=== PATIENT | female | born 1995 | race Caucasian/White ===

== ENCOUNTER 2018-03-14 17:21 | Emergency (ER) | payer OTHER ==
[2018-03-14 17:32] VITALS: BP 121/80
[2018-03-14] MEDS: DIPH,PERTUSS(ACELL),TET VAC/PF 0.5 ML DISP.SYRIN IM ONE (17:45)
--- NOTE | 2018-03-14 17:46 | ED Physician Documentation ---
General Adult - HISTORIAN Historian: patient - HPI Stated Complaint: Cat bites Chief Complaint: General Adult Additional Information: Bitten by her cat just prior to arrival in ER. Says her partner ran over the cat , she picked up the animal and was bitten. Says cat's rabies immunization UTD. No recent antibiotics. Hands washed with soap and water at home and with chlorhexadine in ER. - ROS CONST: no problems - PAST HX Past History: none Allergies/Adverse Reactions: Allergies Allergy/AdvReac Type Severity Reaction Status Date / Time No Known Allergies Allergy Verified 03/14/18 17:32 Home Medications: Ambulatory Orders Medication Instructions Recorded Amoxicillin/Potassium Clav 1 each PO Q8H #30 tablet 03/14/18 [Augmentin 500-125 Tablet] Norethindrone AC-Eth Estradiol 1 tab PO DAILY 03/14/18 [Microgestin 21 1-20 Tablet] - SOCIAL HX Smoking History: non-smoker - FAMILY HX Family History: No - VITAL SIGNS Vital Signs: Vital Signs Temp Pulse Resp BP Pulse Ox 98.3 F 86 17 121/80 100 03/14/18 17:27 03/14/18 17:27 03/14/18 17:27 03/14/18 17:27 03/14/18 17:27 - REVIEWED ASSESSMENTS Nursing Assessment Reviewed: Yes Vitals Reviewed: Yes ED Results Lab/Radiology - Orders Orders: ED Orders Category Date Time Status Diph,Pertuss(Acell),Tet Vac/Pf [Adacel] Med 03/14/18 17:42 Discontinued 0.5 ml IM .STK-MED ONE General Adult Physical Exam - PHYSICAL EXAM GENERAL APPEARANCE: mild distress (upset at cat's ) EENT: eye inspection normal, ENT inspection normal NECK: normal inspection, supple RESPIRATORY: no resp distress BACK: other (supple movements w/o pain) SKIN: warm/dry, normal color, other (superficial abrasions and one puncture luis dorsum right hand, mild swelling. Superficial abrasion dorsum left hand.) EXTREMITIES: normal range of motion (gait and stance) NEURO: CN's nml as tested, motor nml, sensation nml, cognition normal Discharge Clincal Impression: Cat bite Prescriptions: Amoxicillin/Potassium Clav [Augmentin 500-125 Tablet] 1 each PO Q8H #30 tablet Referrals: Blayne Alarcon MD [STAFF PHYSICIAN] - 2 Days Additional Instructions: Take all the antibiotics as prescribed until they are completely gone. Return to the ER or see your provider immediately if your hands become infected. Your prescription is at [facility]. Condition: Good Disposition: 01 HOME, SELF-CARE Decision to Admit: NO Decision Time: 17:42
== END 2018-03-14 17:49 | disposition home or self-care (01) ==
LOC: ED 17:21
DX: S60.511A Abrasion of right hand, initial encounter (principal); S60.512A Abrasion of left hand, initial encounter; W55.01XA Bitten by cat, initial encounter; Y92.9 Unspecified place or not applicable; Y93.9 Activity, unspecified; Y99.9 Unspecified external cause status
CPT/HCPCS: 90471; 90715